=== PATIENT | female | born 1995 | race Caucasian/White ===

== ENCOUNTER 2018-09-11 00:35 | Emergency (ER) | payer SELFPAY ==
[~2018-09-11] VITALS: Ht 152.4 cm; Wt 64.9 kg
[2018-09-11] MEDS ORDERED: SODIUM CHLORIDE 0.9% 1000ML 1,000 ML IV ONE (01:15)
[2018-09-11] MEDS ORDERED: SODIUM CHLORIDE 0.9% 1000ML 1,000 ML ONE (01:17)
[2018-09-11] MEDS ORDERED: LEVOFLOXACIN 500MG/D5W 100ML 100 ML IV ONE ×2 (02:01→02:15)
[2018-09-11 03:18] VITALS: BP 112/59
--- NOTE | 2018-09-11 03:37 | NUR ---
[facility] CALLED FOR TRANSPORT
== END 2018-09-11 03:25 | disposition home or self-care (01) ==
LOC: FSED 00:35
DX: N30.00 Acute cystitis without hematuria (principal)
CPT/HCPCS: 80048; 81003; 81025; 85025; 99283; J1956; J7030